=== PATIENT | male | born 1975 | race Caucasian/White ===

== ENCOUNTER 2017-05-27 18:52 | Emergency (ER) | payer BC ==
[~2017-05-27] VITALS: Ht 175.3 cm; Wt 95.5 kg
[2017-05-27 18:53] VITALS: TEMP 36.6; Ht 175.3 cm; Wt 95.5 kg
--- NOTE | 2017-05-27 19:37 | DIAGNOSTIC IMAGING REPORT ---
LEFT ANKLE 3 VIEWS HISTORY: Left ankle pain. LEFT ANKLE, EVAL FX COMPARISON: None. FINDINGS: There is no fracture or dislocation. Lateral soft tissue swelling. Tiny posterior calcaneal spur. No radiopaque foreign bodies. IMPRESSION: No fractures. Lateral soft tissue swelling. Electronically signed by: Cruzito Petty M.D. 05/27/2017 7:35 PM Dictated Date/Time: 05/27/2017 7:34 PM
--- NOTE | 2017-05-27 19:48 | EMERGENCY ROOM VISIT NOTE ---
ED Visit Note First contact with patient: 18:56 CHIEF COMPLAINT: Left ankle injury 2 hours ago HISTORY OF PRESENT ILLNESS: Patient is a 42-year-old white male who presents emergency department for evaluation of a left ankle injury that he sustained about 2 hours ago. He was wearing a slightly heeled ankle-high work boot, when he states that he stepped on some uneven ground, sustaining an inversion injury to the left ankle. He notes pain and swelling on the lateral aspect of the left ankle. He notes progressively worsening pain with attempts at weightbearing. He took ibuprofen and applied ice to the ankle. He rates his pain a 9/10. He denies any prior history of injuries to this ankle. No foot or knee pain. REVIEW OF SYSTEMS: Review of systems as per HPI. All other systems reviewed were negative. At least 6 systems reviewed. PMH: Electronic medical records are reviewed and summarized as above/below. See Problem List. SOCIAL HISTORY: Patient lives at home with his and kids. Nonsmoker. PHYSICAL EXAM: Vital Signs: Reviewed Nurse's notes. MENTAL STATUS: Alert, oriented, and cooperative. The left ankle is markedly swollen and tender over the lateral aspect but the skin is intact and there is no ligamentous instability. There is slight pain over the medial malleolus. No pain over the 5th metatarsal or fibular head. Lisfranc joint is negative. There is no deformity. The foot and toes are warm and well-perfused. Sensation to pain and light touch is intact. EMERGENCY DEPARTMENT COURSE: Danny was applied to the left ankle. X-ray reveals no fracture, only the soft tissue swelling. A compression sleeve and gel splint were applied to the ankle under my direction and the position was satisfactory. Patient has crutches. Differential diagnosis include foot verses ankle sprain/fracture, contusion, dislocation. Blood pressure screening : Patient was found to have normal blood pressure on screening and does not require follow-up. Medication reconciliation: I attest that I have personally reviewed the patient' s current medication list. LEFT ANKLE 3 VIEWS HISTORY: Left ankle pain. LEFT ANKLE, EVAL FX COMPARISON: None. FINDINGS: There is no fracture or dislocation. Lateral soft tissue swelling. Tiny posterior calcaneal spur. No radiopaque foreign bodies. IMPRESSION: No fractures. Lateral soft tissue swelling. Current/Historical Medications No Active Prescriptions or Reported Meds Allergies Coded Allergies: No Known Allergies (Unverified , 9/1/17) Vital Signs Date Time Temp Pulse Resp B/P (MAP) Pulse Ox O2 Delivery O2 Flow Rate FiO2 05/27/17 18:53 36.6 73 18 147/94 96 Room Air Departure Information Impression Primary Impression: Left ankle sprain Prescriptions No Active Prescriptions or Reported Meds Referrals Edmond Banegas M.D. (PCP) Patient Instructions My [facility] Additional Instructions Ibuprofen(Motrin, Advil) may be used for fever or pain. Use 600mg every six hours as needed. Take with food. Avoid using more than 2400mg in a 24 hour period. Do not use 2400mg per day for more than three consecutive days without physician direction. Prolonged inappropriate use can lead to stomach upset or ulcers. This medication can be taken if you need to drive, work, or perform activities which may be dangerous when taking narcotic pain medication. (AND/OR) Acetaminophen(Tylenol) may be used for fever or pain. Use 1000mg every six hours as needed. Avoid using more than 3000mg in a 24 hour period. This medication can be taken if you need to drive, work, or perform activities which may be dangerous when taking narcotic pain medication. Ice compresses for 20 minutes at a time four times daily for 2-3 days. Use the gel splint and crutches as instructed. Rest and elevate your injury. Continue current medications. Return to the ER immediately for any numbness, tingling, severe pain, extreme swelling in the extremity or as needed. Followup with your family doctor or orthopedic surgery if no improvement in 5-7 days.
[2017-05-27 20:09] VITALS: BP 132/76; PULSE 70; O2SAT 99
== END 2017-05-27 20:11 | disposition home or self-care (01) ==
LOC: C.EDB 18:53 → C.EDD 20:11
DX: S93.402A Sprain of unspecified ligament of left ankle, initial encounter (principal); X50.1XXA Overexertion from prolonged static or awkward postures, initial encounter; Y92.480 Sidewalk as the place of occurrence of the external cause

== ENCOUNTER → 2018-04-21 | Outpatient (CLI) | payer BC ==
[2018-04-21 17:43] LABS: PTT PATIENT 28.5 SECONDS (21.0-31.0)
[2018-04-21 17:47] LABS: BASO % 1.5 %; BASO ABS # 0.07 K/uL (0-0.2); EOS % 9.9 %; EOS ABS # 0.47 K/uL (0-0.5); HEMATOCRIT 45.8 % (42-52); HEMOGLOBIN 15.4 g/dL (14.0-18.0); IG# 0.01 K/uL (0.00-0.02); LYMPH % 36.2 %; LYMPH ABS # 1.71 K/uL (1.2-3.4); MEAN CELL VOLUME 87.4 fL (80-100); MEAN CORPUSCULAR HEMOGLOBIN 29.4 pg (25-34); MEAN CORPUSCULAR HGB CONC 33.6 g/dl (32-36); MEAN PLATELET VOLUME 10.8 fL (7.4-10.4); MONO % 10.1 %; MONO ABS # 0.48 K/uL (0.11-0.59); NEUT % 42.1 %; NEUT ABS # 1.99 K/uL (1.4-6.5); PLATELET COUNT 236 K/uL (130-400); RED CELL DISTRIBUTION WIDTH SD 41.6 fL (36.4-46.3); WHITE BLOOD COUNT 4.73 K/uL (4.8-10.8)
[2018-04-21 17:56] LABS: POTASSIUM 3.8 mmol/L (3.5-5.1)
== END | disposition home or self-care (01) ==
LOC: C.LABBFT 13:02
DX: Z01.818 Encounter for other preprocedural examination (principal)

== ENCOUNTER → 2018-05-01 | Day surgery (SDC) | payer BC ==
[2018-04-21 11:57] VITALS: Ht 175.3 cm; Wt 96.8 kg
[~2018-05-01] VITALS: Ht 175.3 cm; Wt 96.8 kg
[~2018-05-01] MED LIST: ATROPINE SULFATE 0.1 MG/ML 5ML SYR IV PRN; CEFAZOLIN 2000MG IV PUSH 15 ML IV SCH; CEFAZOLIN SOD 1000MG/7.5 ML IV PUSH ONE; DEXAMETHASONE SOD INJ 4 MG/ML VIAL ONE; ESMOLOL HCL 10 MG/ML 10 ML VIAL ONE; EpHEDrine SULFATE INJ 50 MG/ML AMP IV PRN; EpINEphrine INJ 1MG/ML AMP 1 MG/ML AMP ONE; FENTANYL CITRATE INJ 50 MCG/1 ML 2 ML VIAL IV PRN; FENTANYL CITRATE INJ 50 MCG/1 ML 2 ML VIAL ONE; GLYCOPYRROLATE INJ 0.2 MG/ML VIAL ONE; HYDROCODONE/ACETAMIN 5/325MG TAB PO PRN; HYDROmorphone INJ 0.5 MG/0.5 ML SYR IV PRN; LACTATED RINGER'S 1000ML 1,000 ML IV SCH; LIDOCAINE 4% MPF SOAK 5 ML = 1 DOSE ONE; LIDOCAINE HCL 2% 2 ML VIAL (20MG/ML) ONE; LIDOCAINE/EPINEPHRINE 1% 20 ML VIAL ONE; MIDAZOLAM HCL 1 MG/ML 2ML VIAL ONE; NURSING VERBAL MED ORDER ONE; ONDANSETRON INJ 2 MG/ML 2 ML VIAL IV PRN; ONDANSETRON INJ 2 MG/ML 2 ML VIAL ONE; OXYMETAZOLINE HCL 0.05% NA SPR 15 ML BTL PRN; OXYMETAZOLINE HCL 0.05% NA SPR 15 ML BTL SCH; PHENYLEPHRINE 100MCG/ML 5ML SYR IV PRN; PROMETHAZINE HCL INJ 12.5 MG in SODIUM CHLORIDE 0.9% 50ML 50 ML IV PRN; PROPOFOL IV EMULSION 10 MG/ML 20 ML VIAL ONE; TRIAMCINOLONE ACET 40 MG/ML VIAL ONE
--- NOTE | 2018-05-01 11:38 | History & Physical Bridge - [place] ---
H&P Re-Evaluation Bridge Note: I have examined the patient, reviewed the History & Physical and in the interval since the performance of the History & Physical I have noted the following changes of clinical significance: No changes noted
--- NOTE | 2018-05-01 13:24 | [facility] Operative Report ---
Operative Report Operative Date May 01, 2018. Pre-Operative Diagnosis Allergic Rhinitis, Nasal Polyps, Septal Deviation, Bilateral Inferior Turbinate Hypertrophy Post-Operative Diagnosis Same Procedure(s) Performed A.) Right Nasal Polyp B.) Left Nasal Polyp Surgeon Dr. Harris Yardage Caller Surgeon(s) None Estimated Blood Loss 50 ml Findings 1. SEVERE BILATERAL SINONASAL POLYPOSIS 2. MODERATE LEFT SEPTAL DEVIATION 3. RIGHT>LEFT INFERIOR TURBINATE HYPERTROPHY 4. PURULENCE WITHIN RIGHT MAXILLARY SINUS Specimens A.) Right Nasal Polyp B.) Left Nasal Polyp Anesthesia Type General I attest to the content of the Intraoperative Record and any orders documented therein. Any exceptions are noted below.
--- NOTE | 2018-05-01 13:25 | Discharge Instructions ---
Discharge Instructions Date of Service May 01, 2018. Admission Reason for Admission: Allergic Rhinitis, Nasal Polyps, Septal Deviation Discharge Discharge Diagnosis / Problem: SAME Discharge Goals Goal(s): Therapeutic intervention Activity Recommendations Activity Limitations: as noted below LIGHT ACTIVITY AND NO NOSE BLOWING FOR 2 WEEKS; NO DRIVING WHILE ON NORCO . Current Hospital Diet Patient's current hospital diet: Discharge Diet Recommended Diet: Regular Diet Procedures Procedures Performed: A.) Right Nasal Polyp B.) Left Nasal Polyp Pending Studies Studies pending at discharge: no Medical Emergencies . Who to Call and When: Medical Emergencies: If at any time you feel your situation is an emergency, please call 911 immediately. . Non-Emergent Contact Non-Emergency issues call your: Surgeon . . "Provider Documentation" section prepared by Mustapha Harris. .
--- NOTE | 2018-05-01 14:13 | OPERATIVE REPORT ---
DATE OF OPERATION: 05/01/2018 PREOPERATIVE DIAGNOSES: 1. Chronic polypoid rhinosinusitis. 2. Left septal deviation. 3. Right greater than left inferior turbinate hypertrophy. POSTOPERATIVE DIAGNOSES: 1. Chronic polypoid rhinosinusitis. 2. Left septal deviation. 3. Right greater than left inferior turbinate hypertrophy. PROCEDURES: WellnessFX fusion image guided bilateral endoscopic sinus surgery consisting of: 1. Bilateral maxillary antrostomies. 2. Bilateral complete ethmoidectomies. 3. Bilateral sphenoidotomies. 4. Septoplasty. 5. Bilateral inferior turbinate outfracture and turbinoplasty. SURGEON: Mustapha Harris MD ANESTHESIA: General endotracheal. ESTIMATED BLOOD LOSS: 50 mL. FINDINGS: 1. Severe sinonasal polyposis with nasal polyps, starting from the superior nasal cavity and extending medial to the middle turbinates bilaterally. 2. Bilateral ethmoid sinus polyposis. 3. Right maxillary sinus mucopurulence. 4. Moderately severe left septal deviation. 5. Right greater than left inferior turbinate hypertrophy. SPECIMENS: Right and left nasal polyp for permanent pathological assessment. COMPLICATIONS: None. INDICATIONS FOR THE PROCEDURE: The patient is a 43-year-old male with the above-mentioned history, which has been unresponsive to maximum medical therapy including systemic antibiotics and steroids along with allergy medications and nasal steroids. A posttreatment fusion CT scan of the sinuses showed pansinusitis, left septal deviation, and bilateral inferior turbinate hypertrophy. He has aplastic frontal sinuses. He presents for the above-mentioned procedure on an outpatient elective basis. DESCRIPTION OF PROCEDURE: After informed consent had been obtained from the patient, the patient was wheeled to the operating room and placed on the operating room table in the supine position. Monitors were placed. After induction of general endotracheal anesthesia, the patient was prepped in the usual fashion for image-guided endoscopic sinus surgery. The WellnessFX fusion headset was placed over the forehead and was registered, verified, and calibrated and used throughout the case, but especially the sphenoid sinus portions. Lidocaine and epinephrine pledgets were placed in the bilateral nasal cavities and pressure applied. The left-sided pledgets were removed. There was evidence of sinonasal polyposis starting from the superior nasal cavity and extending medial to the middle turbinate. There was also polyposis within the middle meatus. The polyps were injected with 1% lidocaine with 1:100,000 epinephrine. Also, the middle turbinate and lateral nasal wall were injected. Lidocaine and epinephrine pledget was then placed into the left middle meatus and the right side was addressed in a similar fashion. The left-sided pledget was removed. A straight Beni-Cut forceps was used to take a biopsy of the left nasal polyp, which was sent off for permanent pathologic assessment. Powered instrumentation was used to perform a nasal polypectomy following the inferior aspect of the nasal polyp that was medial to the middle turbinate and following superiorly to the roof of the nasal cavity. A freer elevator was then used to medialize the left middle turbinate. There was polyposis within the middle meatus which was also removed using powered instrumentation. An uncinatectomy was then performed using a freer elevator, straight Beni-Cut forceps, backbiting forceps, and powered instrumentation. The natural ostia of the maxillary sinus was enlarged anteriorly, inferiorly, and posteriorly using backbiting forceps and powered instrumentation. A complete ethmoidectomy was then performed using powered instrumentation. Of note, the patient had severe sinonasal polyposis involving the left ethmoid sinus. A transethmoid approach to the sphenoid sinus was then undertaken and the medial and inferior aspect of the natural ostia of the sphenoid sinus was enlarged using powered instrumentation. Of note, there was polypoid mucosal thickening involving all of the paranasal sinuses, but this was much worse in the ethmoid sinus. The right side was then addressed in a similar fashion with similar intraoperative findings; however, on this side, there was also severe mucopurulence from the right maxillary sinus, which was suctioned using a curved maxillary sinus suction. The nasal septum was then injected with 1% lidocaine with 1:100,000 epinephrine. Lidocaine and epinephrine pledgets were then placed in the bilateral nasal cavities and pressure applied. The pledgets were then removed. A #15 scalpel was used to make a left [place] incision through which the left-sided mucoperichondrium and mucoperiosteal flap was elevated. A #15 scalpel was then used to incise the quadrangular cartilage with care to preserve a 1.5 cm dorsal and caudal strut and the right-sided mucoperichondrium and mucoperiosteal flap was elevated through this cartilaginous incision. A Mateo swivel knife was then used to remove the deviated portions of the quadrangular cartilage. A V-shaped osteotome, moustapha, and Lauren forceps was then used to remove the bony septal spur which was impinging on the airway posteriorly to the left hand side. Fertile-Russell forceps was then used to remove further septal bone that was impacting on the airway posterosuperiorly. The septal cavity was then suctioned. The septum was found to be midline. The left [place] incision was closed with several simple interrupted 4-0 chromic sutures. A 4-0 plain gut suture on a Alex needle was then used to perform a quilting stitch of the mucoperichondrium and mucoperiosteal flaps bilaterally to help prevent septal hematoma. A Weir elevator was then used to infracture and subsequently outfracture the inferior turbinates bilaterally. These were injected with 1% lidocaine with 1:100,000 epinephrine. A 2.0 mm turbinate blade using powered instrumentation was then used to perform bilateral inferior turbinoplasties in a submucosal fashion. The sinonasal cavities and nasopharynx were then suctioned. Stammberger nasal dressing mixed with Kenalog 40 mg per mL was then instilled into the bilateral ethmoid sinuses/middle meati. An orogastric tube was placed and the stomach was suctioned free of air and stomach contents. This marked the end of the case. The patient tolerated the procedure well and there were no apparent complications. The patient was extubated and transferred to the recovery room in stable condition. I attest to the content of the Intraoperative Record and any orders documented therein. Any exception s are noted below.
--- NOTE | 2018-05-01 14:30 | Anesthesia Progress Nt - [facility] ---
Anesthesia Post Op Note Date & Time May 01, 2018 at 14:30 Vital Signs Pain Intensity: 0 Vital Signs Past 12 Hours Date Time Temp Pulse Resp B/P (MAP) Pulse Ox O2 Delivery O2 Flow Rate FiO2 05/01/18 14:27 36.3 53 16 119/92 95 Room Air 05/01/18 14:23 54 16 94 05/01/18 14:23 53 16 05/01/18 14:21 122/86 05/01/18 14:18 57 22 93 05/01/18 14:18 56 22 05/01/18 14:16 120/83 05/01/18 14:13 49 15 05/01/18 14:13 49 15 92 05/01/18 14:11 106/86 05/01/18 14:08 53 10 94 05/01/18 14:08 53 10 05/01/18 14:06 133/92 05/01/18 14:03 52 14 05/01/18 14:03 53 14 97 05/01/18 14:01 128/98 05/01/18 13:58 55 18 05/01/18 13:58 55 18 94 05/01/18 13:56 133/92 05/01/18 13:53 53 12 05/01/18 13:53 53 12 94 05/01/18 13:51 128/84 05/01/18 13:48 52 12 95 05/01/18 13:48 52 12 05/01/18 13:46 131/91 05/01/18 13:43 15 05/01/18 13:43 61 15 05/01/18 13:42 144/83 05/01/18 13:41 57 18 93 05/01/18 13:41 57 18 05/01/18 13:37 130/93 05/01/18 13:36 12 05/01/18 13:36 67 12 05/01/18 13:33 139/90 05/01/18 13:31 36.5 64 16 130/93 96 Humidified Oxygen 6 Mask 05/01/18 10:18 36.7 59 22 162/109 (126) 97 Room Air 146/98 (114) Notes Mental Status: alert / awake / arousable, participated in evaluation Pt Amnestic to Procedure: Yes Nausea / Vomiting: adequately controlled Pain: adequately controlled Airway Patency, RR, SpO2: stable & adequate BP & HR: stable & adequate Hydration State: stable & adequate Anesthetic Complications: no major complications apparent
[2018-05-01 14:37] VITALS: TEMP 36.6
[2018-05-01 15:08] VITALS: BP 135/93; PULSE 56; O2SAT 95
== END | disposition home or self-care (01) ==
LOC: X.SURG 10:01
DX: J32.9 Chronic sinusitis, unspecified (principal); J33.9 Nasal polyp, unspecified; J30.9 Allergic rhinitis, unspecified; J34.2 Deviated nasal septum; J34.3 Hypertrophy of nasal turbinates